=== PATIENT | female | born 1940 | race African-American/Black ===

== ENCOUNTER 2018-04-30 16:57 | Emergency (ER) | payer MEDICARE ==
[~2018-04-30 16:57] MED LIST: ISOVUE-370 76%-LOCM 1 ML ONE
--- NOTE | 2018-04-30 19:52 | CT ---
CT LEFT HAND PERFORMED WITH CONTRAST ENHANCEMENT: HISTORY: Hand swelling with fever. FINDINGS: Exam positioning is suboptimal, as the patient had difficulty due to swelling and moving the hand. There are arthritic changes of the wrist, mainly related to the first carpometacarpal joint space. I do not see any bony destructive change or evidence for fracture. There is soft tissue swelling on both the dorsal and volar sides of the wrist. Changes are more pron ounced along the volar side. There is what appears to be tenosynovitis changes of some of the volar- sided tendons, and a slightly more focal fluid collection seen adjacent to the volar side of the dist al radius. I believe this is probably just part of the tenosynovitis change. There is subcutaneous edema change seen. I do not see a definite defined abscess collection. IMPRESSION: No definite defined abscess. Soft tissue swelling, which seems more pronounced along volar side of t he wrist and hand. There is some fluid density, which is near some of the deeper volar-sided tendons , which would suggest some tenosynovitis. I do not see any signs for osteomyelitis. POS: ABDIFATAH
[2018-04-30] MEDS ORDERED: Fentanyl 100 MCG/2 ML VIAL ONE (20:38)
[2018-04-30] MEDS ORDERED: Clindamycin 150 MG CAP PO SCH (21:00)
== END 2018-04-30 22:57 | disposition short-term general hospital (02) ==
LOC: ERS 16:57
DX: M65.9 Synovitis and tenosynovitis, unspecified (principal); L03.114 Cellulitis of left upper limb; F03.90 Unspecified dementia, unspecified severity, without behavioral disturbance, psychotic disturbance, mood disturbance, and anxiety; E78.5 Hyperlipidemia, unspecified; I10 Essential (primary) hypertension; F41.9 Anxiety disorder, unspecified; Z79.899 Other long term (current) drug therapy
CPT/HCPCS: 29125; 94760; 96374; J3010

== ENCOUNTER 2018-07-02 20:06 | Inpatient (IN) | payer MEDICARE, SELFPAY ==
[2018-07-02 22:34] LABS: Troponin I 0.038 ng/mL (< 0.028)
[2018-07-03] MEDS ORDERED: Ondansetron HCl/PF 4 MG/2 ML Vial IVP PRN ×2 (00:06→07:10)
[2018-07-03] MEDS ORDERED: Ondansetron ODT 4 MG TAB SL PRN (00:06)
[2018-07-03] MEDS ORDERED: Acetaminophen 325 MG TAB PO PRN (00:06)
[2018-07-03] MEDS ORDERED: Sodium Chloride 0.9% 1,000 ML IV SCH (00:06)
[2018-07-03] MEDS: hydrALAZINE 20 MG/ML VIAL SLOW IVP PRN ×2 (00:47→11:54)
[2018-07-03 01:55] VITALS: BMI 23.3
[2018-07-03] MEDS ORDERED: Metoprolol Tartrate 50 MG TAB PO SCH (02:00)
[2018-07-03 02:12] LABS: #Lymphocytes 1.8 thou/uL (1.20-3.40); #Monocytes 0.5 thou/uL (0.11-0.59); #Neutrophils 3.8 thou/uL (1.40-6.50); %Basophils 0.4 % (0.0-1.0); %Eosinophils 0.7 % (0.0-10.0); %Lymphocytes 29.7 % (21.0-51.0); %Monocytes 8.4 % (0.0-10.0); %Neutrophils 60.7 % (42.0-75.0); Hemoglobin 12.7 g/dL (12.0-16.0); Mean Corpuscular HGB CONC 34.1 g/dL (32.0-36.0); Mean Corpuscular Hemoglobin 31.7 pg (27.0-31.0); Mean Corpuscular Volume 92.9 fL (78.0-98.0); Platelet Count 259 thou/uL (130-400); RBC Distribution Width 13.2 % (11.5-14.5); Red Blood Cell (RBC) Count 4.02 mill/uL (4.20-5.40); White Blood Cell (WBC) Count 6.2 thou/uL (4.8-10.8)
[2018-07-03 02:36] LABS: Troponin I 0.047 ng/mL (< 0.028)
[2018-07-03 02:46] LABS: Anion Gap 16 mmol/L (10-20); BUN (Urea Nitrogen) 18 mg/dL (9.8-20.1); Calc. Creatinine Clearance 40 mL/min (70-130); Calcium 10.5 mg/dL (7.8-10.44); Carbon Dioxide 24 mmol/L (23-31); Chloride 103 mmol/L (98-107); Estimated GFR-MDRD 50; Glucose 107 mg/dL (83-110); Potassium 3.2 mmol/L (3.5-5.1); Sodium 140 mmol/L (136-145)
[2018-07-03] MEDS ORDERED: Nitroglycerin 0.4 MG TAB (25 Tab Bottle) PO PRN (07:07)
[2018-07-03] MEDS ORDERED: Milk Of Magnesia 30 ML UDCUP PO PRN (07:10)
[2018-07-03] MEDS ORDERED: Senokot 8.6 MG TAB PO PRN (07:10)
[2018-07-03] MEDS ORDERED: Calcium Carbonate 500 MG ChewTAB PO PRN (07:10)
[2018-07-03] MEDS ORDERED: Ondansetron ODT 4 MG TAB PO PRN (07:10)
[2018-07-03] MEDS ORDERED: Labetalol HCl 100 MG/20 ML VIAL SLOW IVP PRN (07:12)
[2018-07-03] MEDS: Aspirin 325 MG TAB PO SCH (07:48)
[2018-07-03] MEDS: Atorvastatin Calcium 40 MG TAB PO SCH (07:49)
[2018-07-03] MEDS: Sodium Chloride 0.9% 1,000 ML IV SCH (07:49)
[2018-07-03] MEDS: Potassium Chloride 20 MEQ TAB PO SCH ×2 (07:49→17:10)
[2018-07-03 08:32] LABS: Magnesium 1.5 mg/dL (1.6-2.6); Phosphorus 2.7 mg/dL (2.3-4.7); Potassium 3.1 mmol/L (3.5-5.1)
[2018-07-03] MEDS ORDERED: Magnesium 2 GM/NS 0.9% 100 ML 2 GM in Premix Bag 1 BAG IVPB SCH (09:00)
[2018-07-03] MEDS ORDERED: Famotidine 20 MG TAB PO SCH (09:00)
--- NOTE | 2018-07-03 10:03 | ULT ---
VENOUS DUPLEX SONOGRAM RIGHT LOWER EXTREMITY: HISTORY: Right leg pain and edema. FINDINGS: The right common femoral vein and greater saphenous junction were evaluated with the femoral, deep fe moral, popliteal, and posterior tibial veins. Good color and spectral Doppler flow. Reactive lymph node at the right groin. IMPRESSION: No sonographic evidence of deep vein thrombosis right lower extremity. POS: CET
--- NOTE | 2018-07-03 11:13 | ULT ---
CAROTID DOPPLER: Date: 07/03/18 INDICATION: Syncope. The right extracranial carotid system is not evaluated due to bandage material. Technologist checked with patient's nurse and was given directions to proceed with evaluation of the left extracranial carotid system. The left extracranial carotid system was evaluated with color Doppler, spectral analysis, and velocit ies. FINDINGS: There is very dense echogenic plaque in the left bulb and proximal left ICA. There is posterior shado wing indicating prominent calcification of this plaque. This inhibits adequate velocity recordings. The velocity recordings are within normal range; however, the velocity recordings are limited due to the dense calcification. The left vertebral appears to show antegrade flow. IMPRESSION: 1. The right extracranial carotid system is not evaluated. 2. There is prominent echogenic calcified plaque in the left proximal ICA and left bulb. This inhibi ts adequate velocity recordings. Significant stenosis cannot be excluded. 3. Recommend further evaluation with CT angio of neck. This would enable adequate evaluation of both extracranial carotid systems. POS: DEBORAH
--- NOTE | 2018-07-03 14:17 | HP ---
DATE OF ADMISSION: 07/03/2018 PRIMARY CARE PHYSICIAN: Dr. Brandon Nur. CHIEF COMPLAINT: Syncopal episode. HISTORY OF PRESENT ILLNESS: The patient is a 77-year-old female who was brought into the emergency room after a syncopal episode while she was at home. This was witnessed by a family member who was not present in the room at this time. Please note that patient is a poor historian and not much information is available from the patient. She passed out when she was walking out of the bathroom per family. It is unclear how long the patient had passed out for. She denies any chest pain, palpitations, lightheadedness, dizziness, headache, double vision, blurring of vision, facial asymmetry, tongue biting or significant injuries. In the emergency room, initial vital signs showed temperature 98.8, respirations 16, pulse rate of 60, blood pressure 161/64 with O2 saturation 100 % on room air. She underwent an EKG that showed paced rhythm. Family also reported that patient has been having multiple near syncopal episodes over the last 1-2 weeks. For this reason, she was sent to this hospital for admission. Cervical spine and lumbar spine x-ray did not reveal any fractures. Chest x- ray was negative for infiltrate. PAST MEDICAL HISTORY: 1. 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 2. Dementia. 3. Hypertension. 4. Chronic lymphedema. 5. Bilateral lower extremity venous stasis. 6. Chronic kidney disease stage 2. 7. Chronic anemia. PAST SURGICAL HISTORY: 1. Cataract surgery. 2. Hysterectomy. 3. Pacemaker placement. ALLERGIES: Patient is allergic to IBUPROFEN and PENICILLIN. CURRENT HOME MEDICATIONS: Per [employer], Tylenol as needed, Lipitor 40 mg daily , vitamin D3 2000 units daily, folic acid 800 mcg daily, Probiotic daily, melatonin at bedtime, fish oil daily, aspirin 325 mg daily, vitamin B12 1000 mcg daily, Lopressor 50 mg b.i.d. SOCIAL HISTORY: As discussed above, the patient currently lives at home with her family. The surrogate decision maker is the niece, Avani, phone number . She is FULL CODE. FAMILY HISTORY: Negative for strokes. Heart disease runs in her family. REVIEW OF SYSTEMS: Cannot be reliably obtained from the patient due to current cognitive status. PHYSICAL EXAMINATION: VITAL SIGNS: Earlier today showed blood pressure of 243/106. GENERAL: A 77-year-old female in no apparent distress. HEENT: Head atraumatic, normocephalic. Sclerae are anicteric. Moist mucous membranes. No oral lesion. NECK: Supple, no JVD appreciated. No carotid bruit. LUNGS: Essentially clear to auscultation bilaterally. No wheezing, rales or rhonchi. HEART: S1, S2 present. Regular rate and rhythm. Pacemaker noted, 2/6 systolic murmur over the mitral area. ABDOMEN: Soft. Bowel sounds present. EXTREMITIES: Showed right calf tenderness. There is chronic lymphedema. The right lower extremity was slightly more swollen than the left. SKIN: Warm and dry. LYMPH NODES: No palpable lymph nodes in the neck. NEUROLOGIC: Grossly nonfocal. Power was 5/5 in all extremities. Finger-to- nose test was normal. PSYCHIATRY: As discussed above. LYMPH NODES: No palpable lymph nodes in the neck. LABORATORY AND X-RAY FINDINGS: 1. CBC showed WBC 6.2 with hemoglobin 10.9, hematocrit 34.8, platelet 247. 2. Potassium 3.1, magnesium 1.5. 3. BNP 300. Troponins in the indeterminate range at 0.040 4. Creatinine at [facility] was 1.49. 5. EKG and chest x-ray by my review as discussed above. IMPRESSION: 1. Syncopal episode of unclear etiology. Possibilities include dehydration. Her creatinine is elevated. Her baseline creatinine in September was 0.94. Other possibilities include cardiac arrhythmias. Orthostatic hypotension will be ruled out. 2. Acute kidney injury on chronic kidney disease stage 2, probably secondary to dehydration. 3. Hypokalemia. 4. Hypomagnesemia. 5. Elevated troponins, probably secondary to demand ischemia. 6. Hypertensive heart disease. Echocardiogram last year showed ejection fraction 60%-65% with moderate concentric left ventricular hypertrophy. 7. Chronic bilateral lower extremity lymphedema with right lower extremity pain , rule out deep venous thrombosis. 8. Hypertensive urgency. 9. Dementia. PLAN: The patient will be monitored on the telemetry unit. We will rule out orthostatic hypotension. Pacemaker will be interrogated. Gentle IV hydration for acute kidney injury. We will recheck base met in a.m. We will replace magnesium and phosphorus. We will consult walking program. We will resume metoprolol. We will also add low dose of amlodipine due to uncontrolled hypertension. We will barely evaluate for home health care. Fall precautions. Plan of care was discussed with the patient and the family in detail. They stated understanding. MTDD
[2018-07-03] MEDS ORDERED: Amlodipine 5 MG TAB PO SCH (14:30)
[2018-07-03] MEDS: Metoprolol Tartrate 50 MG TAB PO SCH (20:33)
[2018-07-03] MEDS: Melatonin 3 MG TAB PO PRN (20:34)
--- NOTE | 2018-07-03 22:17 | CON-2 ---
DATE OF CONSULTATION: 07/03/2018 CARDIOLOGY CONSULTATION PRIMARY CARE PHYSICIAN: No record. PRIMARY ARTISTIC ASSOCIATE: Annette Zhang M.D. REFERRING PHYSICIAN: Cornel Domingo M.D. REASON FOR CARDIOLOGY CONSULTATION: Possible cardiogenic syncope. HISTORY OF PRESENT ILLNESS: Ms. Stephenson is a very pleasant 77-year-old - [place] female with significant history of hypertension, sick sinus syndrome with status post pacemaker placement in 04/2017 and dementia. At this moment, the patient is alert, but confused to place and situation. The patient's information was obtained from patient's nieces at the bedside and the patient's medical record. The patient's niece reported that the patient has failed at least 5 times in last 1 week, but she never passed out before; however, yesterday when she got up after the patient had a bowel movement, she passed out and fell. At this moment, she lives with her niece's family. The patient' s family member called EMS and the patient was transferred to [facility] for further evaluation and treatment. Per nieces, she was eating and drinking well at home. However, she tends to stay hot room. The patient's pacemaker was interrogated today and showed total 3 episodes of atrial tachycardia, but not significant enough to cause patient's syncope. The patient's carotid Doppler today and CT scan to neck show prominent echogenic classified plug in the left proximal ICA and the left (04:09). Right size is not evaluated because of the IV placement and patient has a VQ scan for right leg pain and edema and showed no significant evidence of DVTs. At the initial Cardiology consult assessment, the patient denied a chest pain or discomfort in her chest, palpitation, fluttering, dizziness, lightheadedness, shortness of breath or any other cardiac complaints. However, the patient is demented. Sometimes patient's answers are questionable. Per nurse, the patient was also found to have orthostatic hypotension; difference is more than 70 point from supine to sitting position. The patient had a pacemaker placement in 04/2017. Patient has echocardiogram done on 07/2017 with EF of 60%-65%, moderate concentric left ventricular hypertrophy, moderate dilated left atrium and normal aortic valve. The patient' s CT brain in June 2018 shows cortical atrophy and a deep white matter ischemic change; however, no acute intracranial abnormality. According to her medical record, she has not had any stress test or cardiac catheterization. PAST MEDICAL HISTORY: 1. Hypertension. 2. Dementia. 3. Mobitz type 2 heart block and status post double chamber pacemaker in April 2017. 4. History of multiple falls within last 1 week. PAST SURGICAL HISTORY: 1. Cataract surgery. 2. Hysterectomy. 3. Status post dual pacemaker placement in November 2016. FAMILY HISTORY: Noncontributory. She cannot answer any questions about patient 's family members. SOCIAL HISTORY: Patient is from [place]. She used to work in the [employer]. At this moment, she lives with her niece's family. Her niece is her power of commercial litigation attorney. The patient denies any ETOH, smoking or illicit drug abuse. ALLERGIES: She is allergic to IBUPROFEN and PENICILLIN. HOME MEDICATIONS: Aspirin 325 mg once a day, metoprolol 50 mg twice a day, vitamin B12 1000 mcg daily, melatonin 3 mg once a night, Tylenol 650 mg q.4. p.r.n., omega 3 once a day, probiotics 3 capsules once a day, vitamin D3 2000 units daily, Lipitor 40 mg once a day, folic acid 800 mcg once a day. REVIEW OF SYSTEMS: Twelve point review of systems as mentioned in the HPI. HEENT: The patient denies any cardiac complaints. The niece reports she has not heard any patient's complained about dizziness, lightheadedness, any cardiac complaints or blood, joint pain or muscle aching, constipation or diarrhea, any GI problems at this moment. PHYSICAL EXAMINATION: VITAL SIGNS: Blood pressure 106/51, pulse is 61, respiratory rate 17, O2 saturation 100% with room air, temperature 98.1. GENERAL: Well-developed and well-nourished without any acute distress. HEAD: Normocephalic, atraumatic. EYES: Extraocular muscle movement intact. ENT: Oral nasal mucosa moist without lesion. She can swallow fluid without difficulty at this moment. She has a good appetite. NECK: No JVD. Neck is supple and normal range of motion. She has IV on the right external jugular vein. LUNGS: Clear to auscultation bilaterally. No wheezing, rales or rhonchi noted. CARDIOVASCULAR: Regular rate rhythm. Normal S1, S2. There are no S3, S4, no significant murmur, hives, thrill, bruits noted. EXTREMITIES: There are 2+ pulses in the bilateral dorsal pedis, posterior tibial, and popliteal has a pulse on the left side is present without bruit or thrill. Unable check the right side due to the IV placement. There is no edema in the bilateral lower extremities. ABDOMEN: Soft and nontender or mass to palpate, nondistended. Bowel sounds are present. MUSCULOSKELETAL: Patient able to move all extremities. SKIN: Warm, dry. No bruises or lesions noted. NEUROLOGIC: Patient is alert to self; however, she is disoriented to time, place, and situation. PSYCHIATRIC: The patient's mood and affect are normal. LABORATORY DATA: WBC 6.2, hemoglobin 12.7, hematocrit 37.4, platelet 259. Sodium 140, potassium 3.2, chloride 103, carbon dioxide 24, BUN 18, creatinine 1.25 and calcium 10.5 and troponin 0.038, 0.047. BNP is 300. The patient's 12-lead EKG at ER showed AV pacing and heart rate of 60s. ASSESSMENT AND PLAN: 1. History of syncopal episodes, possible due to the orthostatic hypotension and/or dehydration. The vital sign record during this admission shows some time patient's blood pressure difference more than 70s. The patient is receiving normal saline 50 mL per an hour at this moment, we would like to continue to monitor the patient's blood pressure and vital signs continuously. 2. Hypertension. The patient's blood pressure is stable with amlodipine 2.5 mg once a day, metoprolol 50 mg twice a day. We would like to continue to monitor. 3. Status post pacemaker placement in April 2017. The patient's pacemaker interrogation today was done with no significant abnormality at this moment. 4. Acute on chronic kidney disease. Patient's creatinine level is stable at this moment. 5. Chronic lymphedema, resolved at this moment, stable with SCDs. We would like to continue to monitor. 6. Dementia. Patient's condition, no change from previous admission. 7. Hypokalemia. Patient has been on the potassium supplement by primary care doctor. 8. Hyperlipidemia. She is on atorvastatin 40 mg once a day. Thank you very much for Cardiology service to participate in care of this patient. We will follow along with the patient care team and make further recommendation as appropriate. TOÑO
--- NOTE | 2018-07-04 00:58 | CON ---
DATE OF CONSULTATION: 07/02/2018 DATE OF ADMISSION: 07/02/2018 INDICATION FOR CONSULTATION: A 77-year-old female with syncopal episodes. Please refer to the notes already dictated by my nurse practitioner, Jenn Parada. HISTORY OF PRESENT ILLNESS: This is a very unfortunate 77-year-old female with significant dementia who still lives at home with her family. She has undergone a pacemaker insertion in the past due to sinus-node dysfunction. At this time, she has a pacemaker insertion, which still shows occasional at rial pacing with ventricular sensing occasionally, she has atrial sensing and ventricular pacing. Reagan syed does have a long first-degree AV heart block. Of note, the patient lives at home with family, appa rently she had been sitting down, had been complaining of being hot. She got up to go to the bathroo and then passed out, but she was doing fine as long as she was sitting and then when she was able t o get up, she finally went to the bathroom, she use the restroom and then on the way back apparently she again after getting up from the toilet and again had another syncopal episode. Since being in [facility] here, it appears that she does have orthostatic hypotension. Her cardiac enzymes were ind eterminate, but which could be due to demand ischemia associated with the syncopal episode. There is no indication that she has suffered a myocardial infarction. The troponin I still indeterminate 0.0 38 and 0.047. She denied any chest pain or significant shortness of breath, did notice her potassium also was on the low side at 3.1. Her BNP was 300. Creatinine was 1.25 with a BUN of 18. She denie d any other symptoms and otherwise have been no significant abnormalities noted. She does not appear to have any infection. Her hemoglobin is stable. White blood cell count was stable, platelet count was also stable. She has had a carotid ultrasound performed, which also did not show any significan t stenosis in the past that she has had no evidence of DVT or PE. On the carotid ultrasound, there w as some concern that are significant stenosis, could not be ruled out due to calcifications, but ther e have been no significant stenosis noted in the past. At this time, she remains very confused. She is unable to give a history and is actually hallucinating and seeing things on the floor that do not exist, otherwise denies any pain or shortness of breath at this time. She is refusing to eat at thi s time. Her dinner, still plate is there, but she has stated that she has already eaten, but obvious ly the food is not touched. She did have an interrogation of the pacemaker, which showed that she godienz s ventricular pacing about 14% of the time. She has atrial pacing and ventricular sensing about 85% of the time. It was noted that she had no high ventricular rate episodes on yesterday morning around 11:00. She did have some fast atrial rates, which could have been either atrial tachycardia. There has been some concern on EKGs that she may have some flutter, but I do not see any true indication o f flutter nor do I see any evidence of atrial fibrillation. She has had some irregular heart rate. She does have a first-degree AV heart block, which has been noted in the past as she does have sinus node dysfunction, but otherwise the pacemaker function appears to be absolutely normal and there have been no significant arrhythmias otherwise that would account for syncopal episodes. The one atrial heart rate episode most likely was atrial tachycardia. PAST MEDICAL HISTORY, SOCIAL HISTORY, FAMILY HISTORY, REVIEW OF SYSTEMS, AND MEDICATIONS: Please ref er to the notes already dictated by the nurse practitioner. IMPRESSION: 1. Syncope, which most likely was due to dehydration. Hopefully, she will improve after she has bee n given more volume. She has not been eating and drinking appropriately, but she appears to have ort hostatic hypotension, hopefully this will improve after fluid replacements. 2. History of pacemaker insertion, this was functioning normally. 3. Significant dementia, this will be dealt with by the primary care service. 4. Hypertension. At this time, we will continue her medications may need to increase her beta block ers to see if this will improve some and may also help the orthostatic hypotension. 5. History of chronic lymphedema. She does have significant edema today, but does have some mild ed rafael. 6. Slight elevation of the cardiac enzymes, which are indeterminate, which most likely are due to de wendie ischemia. We would be more than happy to continue to follow the patient with you at this time, but overall appears that she has orthostatic hypotension. We will need to evaluate this further. We will continue to follow with orthostatic blood pressure checks.
--- NOTE | 2018-07-04 08:16 | PDOC.CTH ---
<TalJenn - Last Filed: 07/04/18 08:11> Cardiology Progress Note - Subjective The pt seen and examined. No overnight events. No cardiac complaints. She is alerted but confused about place and situation. Per RN, the pt could not stand because of severe dizziness. - Objective Vital Signs Temp Pulse Resp BP Pulse Ox 07/04/18 05:01 97.3 F L 72 12 164/58 H 100 Weight 150 lb 1.6 oz 07/03/18 07/04/18 07/05/18 06:59 06:59 06:59 Intake Total 823 2049 Output Total 800 515 Balance 23 1534 - Physical Examination Neck: carotid US brisk Lungs: CTA Heart: RRR Abdomen: soft Extremities: other: (No edema; SCDs) - Telemetry Telemetry Rhythm: A paced - Labs Result Diagrams: 07/03/18 01:58 07/03/18 08:07 Troponin/CKMB Troponin I 0.047 ng/mL (< 0.028) H 07/03/18 01:58 - Assessment/Plan 1. S/p Syncopal episode 2/2 orthostatic hypotension - Unable to obtain orthstatic VS last night due to the pt's confusion. Orthostatic hypotension this AM was Spine: SBP 164, sittin, standing: Error (60s by manual). She complained of dizziness when she was standing, per RN report. Fluid intake yesterday was > 2000. 2. HTN - stable with current medication 3. 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 Dementia - 5. JEAN CLAUDE - Cont. to monitor 6. Hyperlipidemia - On Statin MAR reviewed Review of Systems - Review of Systems Constitutional: reports: no symptoms reported EENTM: reports: no symptoms reported Respiratory: reports: no symptoms reported Cardiac (ROS): reports: no symptoms reported ABD/GI: reports: no symptoms reported : reports: no symptoms reported Musculoskeletal: reports: back pain <Rojelio Zhang - Last Filed: 07/04/18 17:46> Cardiology Progress Note - Objective Vital Signs Temp Pulse Resp BP BP BP Pulse Ox 07/04/18 16:00 97.4 F L 63 18 144/74 H 94 L 07/04/18 11:19 97.3 F L 63 20 101/59 L 98 07/04/18 08:50 61 07/04/18 07:55 97.4 F L 61 16 07/04/18 07:37 97.4 F L 61 16 118/70 168/82 H 100 Weight 150 lb 1.6 oz 07/03/18 07/04/18 07/05/18 06:59 06:59 06:59 Intake Total 823 2049 411 Output Total 800 515 Balance 23 1534 411 - Labs Result Diagrams: 07/03/18 01:58 07/04/18 15:20 Troponin/CKMB Troponin I 0.047 ng/mL (< 0.028) H 07/03/18 01:58 - Assessment/Plan Pt. seen and eval. by me. I agree with the A/P by the DRILL OPERATOR.If the orthostatic BP does not improve after volume replacement then I suggest we try Midodrine and support hose.
[2018-07-04] MEDS: Amlodipine 5 MG TAB PO SCH (08:50)
[2018-07-04] MEDS: Aspirin 325 MG TAB PO SCH (08:50)
[2018-07-04] MEDS: Metoprolol Tartrate 50 MG TAB PO SCH ×2 (08:50→20:54)
[2018-07-04] MEDS: Atorvastatin Calcium 40 MG TAB PO SCH (08:51)
[2018-07-04] MEDS: Acetaminophen 325 MG TAB PO PRN ×2 (08:51→20:54)
[2018-07-04] MEDS: Famotidine 20 MG TAB PO SCH (08:51)
[2018-07-04] MEDS: Sodium Chloride 0.9% 1,000 ML IV SCH ×2 (11:01→11:54)
--- NOTE | 2018-07-04 12:48 | PDOC.PN ---
- Subjective Encounter Start Date: 07/04/18 Encounter Start Time: 12:47 Patient was seen and examined by me. Not in acute distress. Denies any dizziness at the time of exams. Per nurse patient had positive orthostatics and was dizzy in the morning. - Objective Resuscitation Status: Resuscitation Status FULL:Full Resuscitation MAR Reviewed: Yes Vital Signs & Weight: Vital Signs (12 hours) Temp Pulse Resp BP BP BP Pulse Ox 07/04/18 11:19 97.3 F L 63 20 101/59 L 98 07/04/18 08:50 61 07/04/18 07:55 97.4 F L 61 16 07/04/18 07:37 97.4 F L 61 16 118/70 168/82 H 100 07/04/18 05:01 97.3 F L 72 12 164/58 H 100 Weight Weight 150 lb 1.6 oz I&O: 07/03/18 07/04/18 07/05/18 06:59 06:59 06:59 Intake Total 823 2049 411 Output Total 800 515 Balance 23 1534 411 Result Diagrams: 07/03/18 01:58 07/03/18 08:07 Phys Exam - Physical Examination Constitutional: NAD HEENT: PERRLA dry skin and MMs Neck: no JVD Respiratory: no wheezing, no rales Cardiovascular: RRR, no significant murmur, no rub Gastrointestinal: soft, non-tender, no distention, positive bowel sounds Musculoskeletal: pulses present Neurological: non-focal, normal sensation, moves all 4 limbs Psychiatric: normal affect Deviation from normal: AOX2 Skin: cap refill <2 seconds Deviation from normal: dry skin Dx/Plan (1) Orthostatic hypotension Code(s): I95.1 - ORTHOSTATIC HYPOTENSION Status: Acute (2) Acute renal failure Status: Acute (3) Electrolyte abnormality Code(s): E87.8 - OTH DISORDERS OF ELECTROLYTE AND FLUID BALANCE, NEC Status: Acute (4) Hypertensive urgency Code(s): I16.0 - HYPERTENSIVE URGENCY Status: Acute (5) Dementia Code(s): F03.90 - UNSPECIFIED DEMENTIA WITHOUT BEHAVIORAL DISTURBANCE Status: Chronic Qualifiers: Dementia type: unspecified type - Plan * . Review of Systems - Review of Systems Constitutional: negative: fever, chills, sweats, weakness, malaise, other Eyes: negative: Pain, Vision Change, Conjunctivae Inflammation, Eyelid Inflammation, Redness, Other ENT: negative: Ear Pain, Ear Discharge, Nose Pain, Nose Discharge, Nose Congestion, Mouth Pain, Mouth Swelling, Throat Pain, Throat Swelling, Other Respiratory: negative: Cough, Dry, Shortness of Breath, Hemoptysis, SOB with Excertion, Pleuritic Pain, Sputum, Wheezing Cardiovascular: negative: chest pain, palpitations, orthopnea, paroxysmal nocturnal dyspnea, edema, light headedness, other Gastrointestinal: negative: Nausea, Vomiting, Abdominal Pain, Diarrhea, Constipation, Melena, Hematochezia, Other Genitourinary: negative: Dysuria, Frequency, Incontinence, Hematuria, Retention , Other Musculoskeletal: negative: Neck Pain, Shoulder Pain, Arm Pain, Back Pain, Hand Pain, Leg Pain, Foot Pain, Other Skin: negative: Rash, Lesions, Fredy, Bruising, Other Neurological: negative: Weakness, Numbness, Incoordination, Change in Speech, Confusion, Seizures, Other - Medications/Allergies Allergies/Adverse Reactions: Allergies Allergy/AdvReac Type Severity Reaction Status Date / Time ibuprofen Allergy Verified 07/03/18 01:41 NSAIDS (Non-Steroidal Allergy Verified 07/03/18 01:41 Anti-Inflamma Penicillins Allergy Verified 07/03/18 01:41 Medications: Current Medications Acetaminophen (Tylenol) 650 mg PO Q4H PRN PRN Reason: Headache/Fever or Pain Last Admin: 07/04/18 08:51 Dose: 650 mg Amlodipine Besylate (Norvasc) 2.5 mg PO DAILY [facility] Last Admin: 07/04/18 08:50 Dose: 2.5 mg Aspirin (Aspirin) 325 mg PO DAILY [facility] Last Admin: 07/04/18 08:50 Dose: 325 mg Atorvastatin Calcium (Lipitor) 40 mg PO DAILY [facility] Last Admin: 07/04/18 08:51 Dose: 40 mg Calcium Carbonate (Tums) 1,000 mg PO Q4H PRN PRN Reason: Heartburn or Indigestion Famotidine (Pepcid) 20 mg PO 0900 [facility] Last Admin: 07/04/18 08:51 Dose: 20 mg Hydralazine HCl (Apresoline) 10 mg SLOW IVP Q4H PRN PRN Reason: FOR SBP > 180 Last Admin: 07/03/18 11:54 Dose: 10 mg Sodium Chloride (Normal Saline 0.9%) 1,000 mls @ 80 mls/hr IV .[id number] [facility] Last Admin: 07/04/18 11:54 Dose: Not Given Labetalol HCl (Normodyne) 10 mg SLOW IVP Q4H PRN PRN Reason: Systolic BP > 180 Magnesium Hydroxide (Milk Of Magnesium) 30 ml PO DAILYPRN PRN PRN Reason: Constipation Melatonin (Melatonin) 3 mg PO HS PRN PRN Reason: Insomnia Last Admin: 07/03/18 20:34 Dose: 3 mg Metoprolol Tartrate (Lopressor) 50 mg PO BID [facility] Last Admin: 07/04/18 08:50 Dose: 50 mg Nitroglycerin (Nitrostat) 0.4 mg PO Q5MIN PRN PRN Reason: Chest Pain Ondansetron HCl (Zofran Odt) 4 mg PO Q6H PRN PRN Reason: Nausea/Vomiting Ondansetron HCl (Zofran) 4 mg IVP Q6H PRN PRN Reason: Nausea/Vomiting Senna (Senokot) 2 tab PO HSPRN PRN PRN Reason: Constipation
--- NOTE | 2018-07-04 14:08 | RAD ---
THERE VIEWS RIGHT SHOULDER: Comparison: None. History: Right shoulder pain after fall. FINDINGS: Three views of the right shoulder shows no evidence of acute fracture or dislocation. There is severe degenerative changes in the glenohumeral joint. The visualized right thorax is unremarkable. IMPRESSION: Severe degenerative changes of the right shoulder without acute osseous abnormality. POS: MISTY
[2018-07-04 15:57] LABS: Anion Gap 12 mmol/L (10-20); BUN (Urea Nitrogen) 20 mg/dL (9.8-20.1); Calc. Creatinine Clearance 46 mL/min (70-130); Calcium 9.8 mg/dL (7.8-10.44); Carbon Dioxide 28 mmol/L (23-31); Chloride 104 mmol/L (98-107); Estimated GFR-MDRD 58; Glucose 100 mg/dL (83-110); Potassium 3.6 mmol/L (3.5-5.1); Sodium 140 mmol/L (136-145)
[2018-07-04] MEDS: Melatonin 3 MG TAB PO PRN (20:54)
[2018-07-05] MEDS: Sodium Chloride 0.9% 1,000 ML IV SCH ×4 (01:21→23:08)
[2018-07-05] MEDS: Aspirin 325 MG TAB PO SCH (09:30)
[2018-07-05] MEDS: Atorvastatin Calcium 40 MG TAB PO SCH (09:30)
[2018-07-05] MEDS: Metoprolol Tartrate 50 MG TAB PO SCH ×2 (09:31→20:44)
[2018-07-05] MEDS: Famotidine 20 MG TAB PO SCH (09:31)
[2018-07-05] MEDS: Amlodipine 5 MG TAB PO SCH (09:31)
[2018-07-05] MEDS: hydrALAZINE 20 MG/ML VIAL SLOW IVP PRN (12:57)
--- NOTE | 2018-07-05 16:03 | EKG ---
Test Reason : Blood Pressure : / mmHG Vent. Rate : 061 BPM Atrial Rate : 061 BPM P-R Int : 000 ms QRS Dur : 200 ms QT Int : 500 ms P-R-T Axes : 000 -74 098 degrees QTc Int : 503 ms AV dual-paced rhythm Abnormal ECG Confirmed by DONY EVANS MD ([id number]), department editor SANDOR GRAVES ([id number]) on 07/05/2018 4:02:49 PM Referred By: Confirmed By:DONY EVANS MD
--- NOTE | 2018-07-05 16:14 | PDOC.CTH ---
<Jenn Parada - Last Filed: 07/05/18 16:09> Cardiology Progress Note - Subjective The pt seen and examined. No cardiac complaints. Difference BP from spine to sitting was > 30. Per nieces, the pt has lost more than 11 lbs less than 2 wks. - Objective Vital Signs Temp Pulse Resp BP BP BP BP 07/05/18 15:54 98.5 F 60 18 120/60 07/05/18 12:57 63 212/83 H 07/05/18 12:20 98.2 F 66 18 212/83 H 07/05/18 09:31 73 145/76 H 07/05/18 08:15 97.5 F L 73 18 110/55 L 81/53 L 07/05/18 06:15 62 195/91 H BP Pulse Ox 07/05/18 15:54 100 07/05/18 12:57 07/05/18 12:20 100 07/05/18 09:31 07/05/18 08:15 123/59 L 100 07/05/18 06:15 Weight 150 lb 1.6 oz 07/04/18 07/05/18 07/06/18 06:59 06:59 06:59 Intake Total 2049 411 Output Total 515 Balance 1534 411 - Physical Examination General/Neuro: other: (alerted; but confused. ) Neck: no JVD present Lungs: CTA Heart: RRR Abdomen: soft Extremities: other: (No edema) - Telemetry Telemetry Rhythm: AV paced - Labs Result Diagrams: 07/03/18 01:58 07/04/18 15:20 Troponin/CKMB Troponin I 0.047 ng/mL (< 0.028) H 07/03/18 01:58 - Assessment/Plan 1. S/p Syncopal episode 2/2 orthostatic hypotension - Difference BP from spine to sitting was > 30. Per nieces, the pt has lost more than 11 lbs less than 2 wks. Will increase NS IV from 50ml to 100ml/h. If cont. siginificant Orthstatic hypotension, we try Midodrine and support hose. 2. HTN - stable with current medication 3. 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 Dementia - stable; family at bedside 5. JEAN CLAUDE - Cont. to monitor 6. Hyperlipidemia - On Statin MAR reviewed * Echo in 04/2017 showed EF60-65%, mod LVH, mod dilated LA. Review of Systems - Review of Systems Constitutional: reports: no symptoms reported EENTM: reports: no symptoms reported Respiratory: reports: no symptoms reported Cardiac (ROS): reports: no symptoms reported ABD/GI: reports: no symptoms reported : reports: no symptoms reported Musculoskeletal: reports: no symptoms reported Skin: reports: no symptoms reported Neurological: reports: no symptoms reported <Rojelio Zhang - Last Filed: 07/05/18 23:26> Cardiology Progress Note - Objective Vital Signs Temp Pulse Resp BP BP Pulse Ox 07/05/18 15:54 98.5 F 60 18 120/60 100 07/05/18 12:57 63 212/83 H 07/05/18 12:20 98.2 F 66 18 212/83 H 100 Weight 150 lb 1.6 oz 07/04/18 07/05/18 07/06/18 06:59 06:59 06:59 Intake Total 2049 411 992 Output Total 515 Balance 1534 411 992 - Labs Result Diagrams: 07/03/18 01:58 07/04/18 15:20 Troponin/CKMB Troponin I 0.047 ng/mL (< 0.028) H 07/03/18 01:58 - Assessment/Plan Pt. seen and eval. by me. I agree with the A/P by the CLINICAL MEDICAL ASSISTANT. We have discussed the plan.
[2018-07-05] MEDS: Acetaminophen 325 MG TAB PO PRN (20:49)
--- NOTE | 2018-07-05 21:16 | PDOC.PN ---
- Subjective Encounter Start Date: 07/05/18 Encounter Start Time: 17:40 Patient seen and examined. Demented and confused, but alert to self and NAD. - Objective Resuscitation Status: Resuscitation Status FULL:Full Resuscitation MAR Reviewed: Yes Vital Signs & Weight: Vital Signs (12 hours) Temp Pulse Resp BP BP Pulse Ox 07/05/18 15:54 98.5 F 60 18 120/60 100 07/05/18 12:57 63 212/83 H 07/05/18 12:20 98.2 F 66 18 212/83 H 100 07/05/18 09:31 73 145/76 H Weight Weight 150 lb 1.6 oz I&O: 07/04/18 07/05/18 07/06/18 06:59 06:59 06:59 Intake Total 2049 411 992 Output Total 515 Balance 1534 411 992 Result Diagrams: 07/03/18 01:58 07/04/18 15:20 Phys Exam - Physical Examination Constitutional: NAD HEENT: PERRLA, moist MMs Neck: no JVD, supple, full ROM Respiratory: no wheezing, no rales, no rhonchi, clear to auscultation bilateral Cardiovascular: no significant murmur Gastrointestinal: soft, non-tender, no distention, positive bowel sounds Musculoskeletal: no edema, pulses present Neurological: non-focal, moves all 4 limbs Demented Psychiatric: normal affect Deviation from normal: A&O x1 Dx/Plan (1) Orthostatic hypotension Code(s): I95.1 - ORTHOSTATIC HYPOTENSION Status: Acute Comment: Per cardio if patient continue to be hypotensive then will give midodrine. We will follow cardio's recs. (2) Acute renal failure Status: Acute Comment: improving (3) Electrolyte abnormality Code(s): E87.8 - OTH DISORDERS OF ELECTROLYTE AND FLUID BALANCE, NEC Status: Resolved (4) Hypertensive urgency Code(s): I16.0 - HYPERTENSIVE URGENCY Status: Acute (5) Dementia Code(s): F03.90 - UNSPECIFIED DEMENTIA WITHOUT BEHAVIORAL DISTURBANCE Status: Chronic Qualifiers: Dementia type: unspecified type Comment: Will need placement. - Plan * . see the above Review of Systems - Review of Systems Constitutional: negative: fever, chills, sweats, weakness, malaise, other Eyes: negative: Pain, Vision Change, Conjunctivae Inflammation, Eyelid Inflammation, Redness, Other ENT: negative: Ear Pain, Ear Discharge, Nose Pain, Nose Discharge, Nose Congestion, Mouth Pain, Mouth Swelling, Throat Pain, Throat Swelling, Other Respiratory: negative: Cough, Dry, Shortness of Breath, Hemoptysis, SOB with Excertion, Pleuritic Pain, Sputum, Wheezing Cardiovascular: negative: chest pain, palpitations, orthopnea, paroxysmal nocturnal dyspnea, edema, light headedness, other Gastrointestinal: negative: Nausea, Vomiting, Abdominal Pain, Diarrhea, Constipation, Melena, Hematochezia, Other Genitourinary: negative: Dysuria, Frequency, Incontinence, Hematuria, Retention , Other Musculoskeletal: negative: Neck Pain, Shoulder Pain, Arm Pain, Back Pain, Hand Pain, Leg Pain, Foot Pain, Other Skin: negative: Rash, Lesions, Fredy, Bruising, Other Neurological: Confusion. negative: Weakness, Numbness, Incoordination, Change in Speech, Seizures, Other - Medications/Allergies Allergies/Adverse Reactions: Allergies Allergy/AdvReac Type Severity Reaction Status Date / Time ibuprofen Allergy Verified 07/03/18 01:41 NSAIDS (Non-Steroidal Allergy Verified 07/03/18 01:41 Anti-Inflamma Penicillins Allergy Verified 07/03/18 01:41 Medications: Current Medications Acetaminophen (Tylenol) 650 mg PO Q4H PRN PRN Reason: Headache/Fever or Pain Last Admin: 07/05/18 20:49 Dose: 650 mg Amlodipine Besylate (Norvasc) 2.5 mg PO DAILY [facility] Last Admin: 07/05/18 09:31 Dose: 2.5 mg Aspirin (Aspirin) 325 mg PO DAILY [facility] Last Admin: 07/05/18 09:30 Dose: 325 mg Atorvastatin Calcium (Lipitor) 40 mg PO DAILY [facility] Last Admin: 07/05/18 09:30 Dose: 40 mg Calcium Carbonate (Tums) 1,000 mg PO Q4H PRN PRN Reason: Heartburn or Indigestion Famotidine (Pepcid) 20 mg PO 0900 [facility] Last Admin: 07/05/18 09:31 Dose: 20 mg Hydralazine HCl (Apresoline) 10 mg SLOW IVP Q4H PRN PRN Reason: FOR SBP > 180 Last Admin: 07/05/18 12:57 Dose: 10 mg Sodium Chloride (Normal Saline 0.9%) 1,000 mls @ 100 mls/hr IV .Q10H [facility] Last Admin: 07/05/18 16:42 Dose: Not Given Labetalol HCl (Normodyne) 10 mg SLOW IVP Q4H PRN PRN Reason: Systolic BP > 180 Last Admin: 07/05/18 06:15 Dose: 10 mg Magnesium Hydroxide (Milk Of Magnesium) 30 ml PO DAILYPRN PRN PRN Reason: Constipation Melatonin (Melatonin) 3 mg PO HS PRN PRN Reason: Insomnia Last Admin: 07/04/18 20:54 Dose: 3 mg Metoprolol Tartrate (Lopressor) 50 mg PO BID [facility] Last Admin: 07/05/18 20:44 Dose: 50 mg Nitroglycerin (Nitrostat) 0.4 mg PO Q5MIN PRN PRN Reason: Chest Pain Ondansetron HCl (Zofran Odt) 4 mg PO Q6H PRN PRN Reason: Nausea/Vomiting Ondansetron HCl (Zofran) 4 mg IVP Q6H PRN PRN Reason: Nausea/Vomiting Senna (Senokot) 2 tab PO HSPRN PRN PRN Reason: Constipation
[2018-07-05] MEDS ORDERED: tiZANidine HCl 4 MG TAB PO PRN (22:36)
[2018-07-06] MEDS: Atorvastatin Calcium 40 MG TAB PO SCH (08:33)
[2018-07-06] MEDS: Aspirin 325 MG TAB PO SCH (08:33)
[2018-07-06] MEDS: Sodium Chloride 0.9% 1,000 ML IV SCH ×2 (08:33→16:51)
[2018-07-06] MEDS: Amlodipine 5 MG TAB PO SCH (08:33)
[2018-07-06] MEDS: Metoprolol Tartrate 50 MG TAB PO SCH ×2 (08:33→20:55)
[2018-07-06] MEDS: Famotidine 20 MG TAB PO SCH (08:34)
--- NOTE | 2018-07-06 18:26 | PDOC.CTH ---
<Jenn Parada - Last Filed: 07/06/18 18:26> Cardiology Progress Note - Subjective The pt seen and examined. No overnight events. No cardiac complaints. Now she has a sitter for fall prevention. - Objective Vital Signs Temp Pulse Resp BP BP BP BP 07/06/18 15:00 97.9 F 68 18 204/90 H 156/89 H 201/95 H 07/06/18 11:00 97.9 F 60 18 120/59 L 07/06/18 08:33 72 07/06/18 07:46 97.3 F L 72 18 07/06/18 07:40 72 18 182/79 H Pulse Ox 07/06/18 15:00 100 07/06/18 11:00 100 07/06/18 08:33 07/06/18 07:46 100 07/06/18 07:40 100 Weight 152 lb 9.6 oz 07/05/18 07/06/18 07/07/18 06:59 06:59 06:59 Intake Total 411 2502 1757 Output Total 50 400 Balance 411 2452 1357 - Physical Examination General/Neuro: other: (alerted to self only) Lungs: CTA Heart: RRR Abdomen: soft Extremities: other: (No edema) - Telemetry Telemetry Rhythm: SR - Labs Result Diagrams: 07/03/18 01:58 07/04/18 15:20 Troponin/CKMB Troponin I 0.047 ng/mL (< 0.028) H 07/03/18 01:58 - Assessment/Plan 1. S/p Syncopal episode 2/2 orthostatic hypotension - Difference BP from spine and sitting to standing was > 50. On NS IV from 50ml to 100ml/h and TEDs. The pt may need neurology service consult. 2. HTN - stable with current medication 3. 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 Dementia - sitter at bedside 5. JEAN CLAUDE - recheck BMP tomorrow AM 6. Hyperlipidemia - On Statin MAR reviewed * Echo in 04/2017 showed EF60-65%, mod LVH, mod dilated LA. Review of Systems - Review of Systems Constitutional: reports: no symptoms reported EENTM: reports: no symptoms reported Respiratory: reports: no symptoms reported Cardiac (ROS): reports: no symptoms reported ABD/GI: reports: no symptoms reported : reports: no symptoms reported <Rojelio Zhang - Last Filed: 07/06/18 19:44> Cardiology Progress Note - Objective Vital Signs Temp Pulse Resp BP BP BP BP 07/06/18 15:00 97.9 F 68 18 204/90 H 156/89 H 201/95 H 07/06/18 11:00 97.9 F 60 18 120/59 L 07/06/18 08:33 72 07/06/18 07:46 97.3 F L 72 18 Pulse Ox 07/06/18 15:00 100 07/06/18 11:00 100 07/06/18 08:33 07/06/18 07:46 100 Weight 152 lb 9.6 oz 07/05/18 07/06/18 07/07/18 06:59 06:59 06:59 Intake Total 411 2502 1757 Output Total 50 400 Balance 411 2452 1357 - Labs Result Diagrams: 07/03/18 01:58 07/04/18 15:20 Troponin/CKMB Troponin I 0.047 ng/mL (< 0.028) H 07/03/18 01:58 - Assessment/Plan Pt. seen and eval. I agree with the A/P by the DENTAL CLAIMS PROCESSOR. Her overall status has changed very little. She continues to have significant drops in the BP with the orthostatic hypotension. This is difficult to treat especially with her degree of HTN. I have discussed the case with the hospital service. Neurology input may be helpful as this is an autonomic issue.
--- NOTE | 2018-07-06 18:41 | PDOC.PN ---
- Subjective Encounter Start Date: 07/06/18 Encounter Start Time: 18:39 patient sitting in bed with family in room. NAD - Objective Resuscitation Status: Resuscitation Status FULL:Full Resuscitation MAR Reviewed: Yes Vital Signs & Weight: Vital Signs (12 hours) Temp Pulse Resp BP BP BP BP 07/06/18 15:00 97.9 F 68 18 204/90 H 156/89 H 201/95 H 07/06/18 11:00 97.9 F 60 18 120/59 L 07/06/18 08:33 72 07/06/18 07:46 97.3 F L 72 18 07/06/18 07:40 72 18 182/79 H Pulse Ox 07/06/18 15:00 100 07/06/18 11:00 100 07/06/18 08:33 07/06/18 07:46 100 07/06/18 07:40 100 Weight Weight 152 lb 9.6 oz I&O: 07/05/18 07/06/18 07/07/18 06:59 06:59 06:59 Intake Total 411 2502 1757 Output Total 50 400 Balance 411 2452 1357 Result Diagrams: 07/03/18 01:58 07/04/18 15:20 Phys Exam - Physical Examination Constitutional: NAD HEENT: PERRLA, moist MMs Neck: no JVD, supple, full ROM Respiratory: no wheezing, no rales, no rhonchi, clear to auscultation bilateral Cardiovascular: RRR, no significant murmur, no rub Gastrointestinal: soft, non-tender, no distention Musculoskeletal: no edema, pulses present Neurological: non-focal, normal sensation, moves all 4 limbs Deviation from normal: demented Deviation from normal: dry skin Dx/Plan (1) Orthostatic hypotension Code(s): I95.1 - ORTHOSTATIC HYPOTENSION Status: Acute Comment: Per cardio midodrin and nitro paste when patient is lying down. Will try [employer] stockings. Will get neurology input. Will monitor and re-evaluate in the AM (2) Acute renal failure Status: Acute Comment: improving (3) Electrolyte abnormality Code(s): E87.8 - OTH DISORDERS OF ELECTROLYTE AND FLUID BALANCE, NEC Status: Resolved (4) Hypertensive urgency Code(s): I16.0 - HYPERTENSIVE URGENCY Status: Acute (5) Dementia Code(s): F03.90 - UNSPECIFIED DEMENTIA WITHOUT BEHAVIORAL DISTURBANCE Status: Chronic Qualifiers: Dementia type: unspecified type Comment: increased metoprolol 75 BID per cardio's recs. - Plan * . Review of Systems - Review of Systems Constitutional: negative: fever, chills, sweats, weakness, malaise, other Eyes: negative: Pain, Vision Change, Conjunctivae Inflammation, Eyelid Inflammation, Redness, Other ENT: negative: Ear Pain, Ear Discharge, Nose Pain, Nose Discharge, Nose Congestion, Mouth Pain, Mouth Swelling, Throat Pain, Throat Swelling, Other Respiratory: negative: Cough, Dry, Shortness of Breath, Hemoptysis, SOB with Excertion, Pleuritic Pain, Sputum, Wheezing Cardiovascular: negative: chest pain, palpitations, orthopnea, paroxysmal nocturnal dyspnea, edema, light headedness, other Gastrointestinal: negative: Nausea, Vomiting, Abdominal Pain, Diarrhea, Constipation, Melena, Hematochezia, Other Genitourinary: negative: Dysuria, Frequency, Incontinence, Hematuria, Retention , Other Musculoskeletal: negative: Neck Pain, Shoulder Pain, Arm Pain, Back Pain, Hand Pain, Leg Pain, Foot Pain, Other Skin: negative: Rash, Lesions, Fredy, Bruising, Other Neurological: negative: Weakness, Numbness, Incoordination, Change in Speech, Confusion, Seizures, Other - Medications/Allergies Allergies/Adverse Reactions: Allergies Allergy/AdvReac Type Severity Reaction Status Date / Time ibuprofen Allergy Verified 07/03/18 01:41 NSAIDS (Non-Steroidal Allergy Verified 07/03/18 01:41 Anti-Inflamma Penicillins Allergy Verified 07/03/18 01:41 Medications: Current Medications Acetaminophen (Tylenol) 650 mg PO Q4H PRN PRN Reason: Headache/Fever or Pain Last Admin: 07/05/18 20:49 Dose: 650 mg Amlodipine Besylate (Norvasc) 2.5 mg PO DAILY [facility] Last Admin: 07/06/18 08:33 Dose: 2.5 mg Aspirin (Aspirin) 325 mg PO DAILY [facility] Last Admin: 07/06/18 08:33 Dose: 325 mg Atorvastatin Calcium (Lipitor) 40 mg PO DAILY [facility] Last Admin: 07/06/18 08:33 Dose: 40 mg Calcium Carbonate (Tums) 1,000 mg PO Q4H PRN PRN Reason: Heartburn or Indigestion Famotidine (Pepcid) 20 mg PO 0900 [facility] Last Admin: 07/06/18 08:34 Dose: 20 mg Hydralazine HCl (Apresoline) 10 mg SLOW IVP Q4H PRN PRN Reason: FOR SBP > 180 Last Admin: 07/05/18 12:57 Dose: 10 mg Sodium Chloride (Normal Saline 0.9%) 1,000 mls @ 100 mls/hr IV .Q10H [facility] Last Admin: 07/06/18 16:51 Dose: 1,000 mls Labetalol HCl (Normodyne) 10 mg SLOW IVP Q4H PRN PRN Reason: Systolic BP > 180 Last Admin: 07/05/18 06:15 Dose: 10 mg Magnesium Hydroxide (Milk Of Magnesium) 30 ml PO DAILYPRN PRN PRN Reason: Constipation Melatonin (Melatonin) 3 mg PO HS PRN PRN Reason: Insomnia Last Admin: 07/04/18 20:54 Dose: 3 mg Metoprolol Tartrate (Lopressor) 75 mg PO BID [facility] Midodrine (Proamatine) 5 mg PO DAILY [facility] Nitroglycerin (Nitrostat) 0.4 mg PO Q5MIN PRN PRN Reason: Chest Pain Nitroglycerin (Nitro-Bid 2% Ointment) 0.5 inch TOP Q8HR [facility] Ondansetron HCl (Zofran Odt) 4 mg PO Q6H PRN PRN Reason: Nausea/Vomiting Ondansetron HCl (Zofran) 4 mg IVP Q6H PRN PRN Reason: Nausea/Vomiting Senna (Senokot) 2 tab PO HSPRN PRN PRN Reason: Constipation Tizanidine HCl (Zanaflex) 4 mg PO HSPRN PRN PRN Reason: Muscle Spasm Last Admin: 07/05/18 23:07 Dose: 4 mg
--- NOTE | 2018-07-06 21:00 | CON ---
DATE OF CONSULTATION: 07/06/2018 CONSULTING PHYSICIAN: Hospitalist Service. IMPRESSION: 1. Vagal-related hypotensive event resulting in a syncopal episode. 2. Pacemaker implantation. 3. Dementia. PLAN: As per Dr. Zhang' direction. HISTORY OF PRESENT ILLNESS: Ms. Stephenson is a 77-year-old black female, who lives at home with her jonny syed. She apparently was sitting on the toilet and had a syncopal episode. She had a similar event and was admitted to [facility] in the past. She had documented hypotensive episode and wa s called on a code. She cannot give me any history as to what she experienced other than she was on the toilet at that time. PAST MEDICAL HISTORY: Otherwise unknown. FAMILY HISTORY: Unknown. SOCIAL HISTORY: No tobacco or alcohol use known. ALLERGIES: NONSTEROIDALS, PENICILLIN. REVIEW OF SYSTEMS: Not obtainable. PHYSICAL EXAMINATION: GENERAL: She is alert, sitting up in a chair in no distress. VITAL SIGNS: Reviewed, which have shown 50 mm drops in systolic pressures, but fairly stable diastol ic pressures. She has a paced rhythm. HEENT: Unremarkable. EXTREMITIES: No cyanosis, clubbing, or edema. NEUROLOGIC: She has fluent and clear speech. She is totally disoriented to ongoing situation. Cran ial nerves II-XII are intact. Motor exam shows symmetric strength. No abnormal movements were seen. Gait was not tested. SUMMARY: This is an elderly lady with dementia, who had a syncopal event while sitting on the toilet . Given that she has a pacemaker, I suspect that it was a hypotensive episode. Agree with Dr. Zhang' plan for management.
[2018-07-06] MEDS: Nitroglycerin 2% Ointment 1 INCH/1 GM Packet TOP SCH (21:01)
[2018-07-06] MEDS: hydrALAZINE 20 MG/ML VIAL SLOW IVP PRN (22:38)
[2018-07-07] MEDS: Sodium Chloride 0.9% 1,000 ML IV SCH (03:30)
[2018-07-07] MEDS: Nitroglycerin 2% Ointment 1 INCH/1 GM Packet TOP SCH ×3 (05:19→21:56)
[2018-07-07 05:39] LABS: Anion Gap 11 mmol/L (10-20); BUN (Urea Nitrogen) 15 mg/dL (9.8-20.1); Calc. Creatinine Clearance 64 mL/min (70-130); Calcium 8.6 mg/dL (7.8-10.44); Carbon Dioxide 20 mmol/L (23-31); Chloride 113 mmol/L (98-107); Estimated GFR-MDRD 82; Glucose 91 mg/dL (83-110); Potassium 3.8 mmol/L (3.5-5.1); Sodium 140 mmol/L (136-145)
[2018-07-07] MEDS: Aspirin 325 MG TAB PO SCH (09:19)
[2018-07-07] MEDS: Amlodipine 5 MG TAB PO SCH (09:19)
[2018-07-07] MEDS: Atorvastatin Calcium 40 MG TAB PO SCH (09:19)
[2018-07-07] MEDS: Metoprolol Tartrate 50 MG TAB PO SCH ×2 (09:21→21:55)
[2018-07-07] MEDS: Midodrine HCl 5 MG TAB PO SCH (09:21)
[2018-07-07] MEDS: Famotidine 20 MG TAB PO SCH (09:21)
--- NOTE | 2018-07-07 11:46 | PDOC.CTH ---
<Jenn Parada - Last Filed: 07/07/18 11:44> Cardiology Progress Note - Subjective The pt seen and examined. No overnight events. No cardiac complaints. Per family, her BP with standing was 120. Howevever, they think her BP at that time was good because she had severe Rt shoulder pain. - Objective Vital Signs Temp Pulse Resp BP BP BP BP 07/07/18 09:19 60 07/07/18 08:55 98.9 F 60 20 112/57 L 120/73 110/56 L 07/07/18 04:00 98.7 F 60 18 120/56 L 07/07/18 00:00 98.6 F 69 14 122/57 L Pulse Ox 07/07/18 09:19 07/07/18 08:55 98 07/07/18 04:00 98 07/07/18 00:00 Weight 156 lb 3.2 oz 07/06/18 07/07/18 07/08/18 06:59 06:59 06:59 Intake Total 2502 3340 Output Total 50 400 Balance 2452 2940 - Physical Examination General/Neuro: other: (alert to self; confused to situation.) Lungs: CTA Heart: RRR Abdomen: soft Extremities: other: (mild bilat edema) - Telemetry Telemetry Rhythm: SR - Labs Result Diagrams: 07/03/18 01:58 07/07/18 05:02 Troponin/CKMB Troponin I 0.047 ng/mL (< 0.028) H 07/03/18 01:58 - Assessment/Plan 1. S/p Syncopal episode 2/2 orthostatic hypotension - Her orthstatic BP was stable this AM. On NS IV 100ml/h and TEDs. Neurology service consult. 2. HTN - stable with current medication 3. 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 Dementia - sitter at bedside 5. JEAN CLAUDE - improved. 6. Hyperlipidemia - On Statin MAR reviewed * Echo in 04/2017 showed EF60-65%, mod LVH, mod dilated LA. . Review of Systems - Review of Systems Constitutional: reports: no symptoms reported EENTM: reports: no symptoms reported Respiratory: reports: no symptoms reported Cardiac (ROS): reports: no symptoms reported ABD/GI: reports: no symptoms reported : reports: no symptoms reported Musculoskeletal: reports: no symptoms reported <Rojelio Zhang - Last Filed: 07/07/18 15:00> Cardiology Progress Note - Objective Vital Signs Temp Pulse Resp BP BP BP BP 07/07/18 12:00 98.5 F 62 20 123/66 07/07/18 09:19 60 07/07/18 08:55 98.9 F 60 20 112/57 L 120/73 110/56 L 07/07/18 04:00 98.7 F 60 18 120/56 L Pulse Ox 07/07/18 12:00 100 07/07/18 09:19 07/07/18 08:55 98 07/07/18 04:00 98 Weight 156 lb 3.2 oz 07/06/18 07/07/18 07/08/18 06:59 06:59 06:59 Intake Total 2502 3340 120 Output Total 50 400 Balance 2452 2940 120 - Labs Result Diagrams: 07/03/18 01:58 07/07/18 05:02 Troponin/CKMB Troponin I 0.047 ng/mL (< 0.028) H 07/03/18 01:58 - Assessment/Plan Pt. seen and eval. by me. I agree with the A/P by the EMAIL CAMPAIGN SPECIALIST. She was started on Midodrine this AM and betablockers were increased yesterday. The BP readings today seem somewhat better but I am suspicious that they may be inaccurate. She has no complaints. Chest clear. RRR, no significant edema. Still confused.
--- NOTE | 2018-07-07 11:51 | DIS ---
The patient was seen and examined by me this morning. The patient does not appear to be in any acute distress. The patient is feeling well. I spoke to the family. The family is aware that the patien miladis is doing well and they admit that the patient can be able to go home with them. Vital signs were reviewed. Patient's blood pressure sitting was 112/57, standing was 120/73 and supi ne was 110/56. Patient has negative orthostatics this morning. DISCHARGE DIAGNOSES: 1. Orthostatic hypotension. 2. Acute renal failure. 3. Electrolyte abnormality. 4. Dementia. CONSULTS: Neuro and Cardiology consult. HOSPITAL COURSE: We have a 77-year-old female with past medical history of AV block status post pace maker, dementia, hypertension, who was brought in to the emergency room after a syncopal episode. Th e patient was at home. Per the note, the patient's syncopal episode was witnessed. During the e of the hospital stay, the patient's temperature was found to be 98.8, respiratory rate was 16, puls e was 60, blood pressure 161/70, oxygen saturation 100% on room air. The patient underwent an EKG th at showed paced rhythm and orthostatics that was done showed that the patient has positive orthostati cs. Therefore, the patient's syncopal episode was attributed to orthostatic hypotension. The patien t was then started on fluids. Cardiology was consulted, came to see the patient. Per Cardiology, th e patient's orthostatic hypotension and patient problems are not due to cardiac issues, but rather au tonomic abnormalities. We got Neuro on board. Neuro is okay with management of using BRYN stockings and doing midodrine low dose and nitro p.r.n. At this point we have increased the patient's metoprol ol to 75 b.i.d. We will discharge the patient since the patient has medically been optimized. DISCHARGE MEDICATIONS: Refer to the electronic medical record for discharge medications. DISPOSITION: The patient was seen and examined by me. The patient is stable and ready to be dischar [facility].
--- NOTE | 2018-07-07 14:57 | EKG ---
Test Reason : Blood Pressure : / mmHG Vent. Rate : 060 BPM Atrial Rate : 060 BPM P-R Int : 288 ms QRS Dur : 108 ms QT Int : 434 ms P-R-T Axes : -04 045 032 degrees QTc Int : 434 ms Atrial-paced rhythm with prolonged AV conduction Abnormal ECG Confirmed by CLARA FITZGERALD MD ([id number]) on 07/07/2018 2:56:45 PM Referred By: GABINO Confirmed By:CLARA FITZGERALD MD
[2018-07-07] MEDS: Melatonin 3 MG TAB PO PRN (21:56)
[2018-07-08] MEDS: Nitroglycerin 2% Ointment 1 INCH/1 GM Packet TOP SCH ×3 (05:27→21:01)
[2018-07-08] MEDS: hydrALAZINE 20 MG/ML VIAL SLOW IVP PRN (05:27)
[2018-07-08] MEDS: Amlodipine 5 MG TAB PO SCH (09:53)
[2018-07-08] MEDS: Aspirin 325 MG TAB PO SCH (09:53)
[2018-07-08] MEDS: Atorvastatin Calcium 40 MG TAB PO SCH (09:53)
[2018-07-08] MEDS: Metoprolol Tartrate 50 MG TAB PO SCH ×2 (09:55→20:54)
[2018-07-08] MEDS: Famotidine 20 MG TAB PO SCH (09:56)
[2018-07-08] MEDS: Midodrine HCl 5 MG TAB PO SCH (09:56)
--- NOTE | 2018-07-08 17:21 | PDOC.PN ---
- Subjective Encounter Start Date: 07/08/18 Encounter Start Time: 17:20 patient seen and examined. Positive orthostatics this morning. - Objective Resuscitation Status: Resuscitation Status FULL:Full Resuscitation MAR Reviewed: Yes Vital Signs & Weight: Vital Signs (12 hours) Temp Pulse Resp BP BP BP BP 07/08/18 12:35 98.1 F 60 18 167/79 H 07/08/18 09:53 60 07/08/18 08:00 97.6 F 60 18 160/64 H 118/62 07/08/18 07:45 98.1 F 60 18 07/08/18 06:58 171/82 H 07/08/18 05:27 64 192/84 H BP Pulse Ox 07/08/18 12:35 98 07/08/18 09:53 07/08/18 08:00 146/70 H 97 07/08/18 07:45 97 07/08/18 06:58 07/08/18 05:27 Weight Weight 158 lb 1.6 oz I&O: 07/07/18 07/08/18 07/09/18 06:59 06:59 06:59 Intake Total 3340 1580 160 Output Total 400 Balance 2940 1580 160 Result Diagrams: 07/03/18 01:58 07/07/18 05:02 Dx/Plan (1) Orthostatic hypotension Code(s): I95.1 - ORTHOSTATIC HYPOTENSION Status: Acute Comment: + orthostatics today. Cardiac recommendations appreciated. Will continue current management. (2) Acute renal failure Status: Resolved (3) Electrolyte abnormality Code(s): E87.8 - OTH DISORDERS OF ELECTROLYTE AND FLUID BALANCE, NEC Status: Resolved (4) Hypertensive urgency Code(s): I16.0 - HYPERTENSIVE URGENCY Status: Acute (5) Dementia Code(s): F03.90 - UNSPECIFIED DEMENTIA WITHOUT BEHAVIORAL DISTURBANCE Status: Chronic Qualifiers: Dementia type: unspecified type Comment: continue current management. - Plan cont current plan of care * . Review of Systems - Review of Systems Constitutional: negative: fever, chills, sweats, weakness, malaise, other Eyes: negative: Pain, Vision Change, Conjunctivae Inflammation, Eyelid Inflammation, Redness, Other ENT: negative: Ear Pain, Ear Discharge, Nose Pain, Nose Discharge, Nose Congestion, Mouth Pain, Mouth Swelling, Throat Pain, Throat Swelling, Other Respiratory: negative: Cough, Dry, Shortness of Breath, Hemoptysis, SOB with Excertion, Pleuritic Pain, Sputum, Wheezing Cardiovascular: negative: chest pain, palpitations, orthopnea, paroxysmal nocturnal dyspnea, edema, light headedness, other Gastrointestinal: negative: Nausea, Vomiting, Abdominal Pain, Diarrhea, Constipation, Melena, Hematochezia, Other Genitourinary: negative: Dysuria, Frequency, Incontinence, Hematuria, Retention , Other Musculoskeletal: negative: Neck Pain, Shoulder Pain, Arm Pain, Back Pain, Hand Pain, Leg Pain, Foot Pain, Other Skin: negative: Rash, Lesions, Fredy, Bruising, Other Neurological: negative: Weakness, Numbness, Incoordination, Change in Speech, Confusion, Seizures, Other - Medications/Allergies Allergies/Adverse Reactions: Allergies Allergy/AdvReac Type Severity Reaction Status Date / Time ibuprofen Allergy Verified 07/03/18 01:41 NSAIDS (Non-Steroidal Allergy Verified 07/03/18 01:41 Anti-Inflamma Penicillins Allergy Verified 07/03/18 01:41 Medications: Current Medications Acetaminophen (Tylenol) 650 mg PO Q4H PRN PRN Reason: Headache/Fever or Pain Last Admin: 07/05/18 20:49 Dose: 650 mg Amlodipine Besylate (Norvasc) 2.5 mg PO DAILY [facility] Last Admin: 07/08/18 09:53 Dose: 2.5 mg Aspirin (Aspirin) 325 mg PO DAILY [facility] Last Admin: 07/08/18 09:53 Dose: 325 mg Atorvastatin Calcium (Lipitor) 40 mg PO DAILY [facility] Last Admin: 07/08/18 09:53 Dose: 40 mg Calcium Carbonate (Tums) 1,000 mg PO Q4H PRN PRN Reason: Heartburn or Indigestion Famotidine (Pepcid) 20 mg PO 0900 [facility] Last Admin: 07/08/18 09:56 Dose: 20 mg Hydralazine HCl (Apresoline) 10 mg SLOW IVP Q4H PRN PRN Reason: FOR SBP > 180 Last Admin: 07/08/18 05:27 Dose: 10 mg Labetalol HCl (Normodyne) 10 mg SLOW IVP Q4H PRN PRN Reason: Systolic BP > 180 Last Admin: 07/05/18 06:15 Dose: 10 mg Magnesium Hydroxide (Milk Of Magnesium) 30 ml PO DAILYPRN PRN PRN Reason: Constipation Melatonin (Melatonin) 3 mg PO HS PRN PRN Reason: Insomnia Last Admin: 07/07/18 21:56 Dose: 3 mg Metoprolol Tartrate (Lopressor) 75 mg PO BID [facility] Last Admin: 07/08/18 09:55 Dose: 75 mg Midodrine (Proamatine) 5 mg PO DAILY [facility] Last Admin: 07/08/18 09:56 Dose: 5 mg Nitroglycerin (Nitrostat) 0.4 mg PO Q5MIN PRN PRN Reason: Chest Pain Nitroglycerin (Nitro-Bid 2% Ointment) 0.5 inch TOP Q8HR [facility] Last Admin: 07/08/18 13:50 Dose: 0.5 inch Ondansetron HCl (Zofran Odt) 4 mg PO Q6H PRN PRN Reason: Nausea/Vomiting Ondansetron HCl (Zofran) 4 mg IVP Q6H PRN PRN Reason: Nausea/Vomiting Senna (Senokot) 2 tab PO HSPRN PRN PRN Reason: Constipation Sodium Chloride (Flush - Normal Saline) 10 ml IVF Q12HR [facility] Last Admin: 07/08/18 09:56 Dose: 10 ml Sodium Chloride (Flush - Normal Saline) 10 ml IVF PRN PRN PRN Reason: Saline Flush Tizanidine HCl (Zanaflex) 4 mg PO HSPRN PRN PRN Reason: Muscle Spasm Last Admin: 07/05/18 23:07 Dose: 4 mg
[2018-07-09] MEDS: Nitroglycerin 2% Ointment 1 INCH/1 GM Packet TOP SCH ×3 (05:37→20:24)
[2018-07-09] MEDS: Amlodipine 5 MG TAB PO SCH (08:50)
[2018-07-09] MEDS: Aspirin 325 MG TAB PO SCH (08:50)
[2018-07-09] MEDS: Midodrine HCl 5 MG TAB PO SCH (08:50)
[2018-07-09] MEDS: Famotidine 20 MG TAB PO SCH (08:51)
[2018-07-09] MEDS: Atorvastatin Calcium 40 MG TAB PO SCH (08:51)
[2018-07-09] MEDS: Metoprolol Tartrate 50 MG TAB PO SCH ×2 (08:51→20:24)
[2018-07-09] MEDS: Melatonin 3 MG TAB PO PRN (20:24)
--- NOTE | 2018-07-09 21:58 | PDOC.PN ---
- Subjective Encounter Start Date: 07/09/18 Encounter Start Time: 10:00 Patient seen and examined for Syncope. No new complaints. No overnight events - Objective Resuscitation Status: Resuscitation Status FULL:Full Resuscitation MAR Reviewed: Yes Vital Signs & Weight: Vital Signs (12 hours) Temp Pulse Resp BP Pulse Ox 07/09/18 19:30 98.1 F 61 18 145/58 H 95 07/09/18 17:06 98.2 F 60 16 139/73 100 07/09/18 12:53 97.9 F 60 16 137/65 100 Weight Weight 156 lb 8 oz I&O: 07/08/18 07/09/18 07/10/18 06:59 06:59 06:59 Intake Total 1580 880 720 Output Total 100 Balance 1580 780 720 Result Diagrams: 07/03/18 01:58 07/07/18 05:02 EKG Reviewed by me: Yes (Tele SR) Phys Exam - Physical Examination Constitutional: NAD Respiratory: no wheezing, no rhonchi Cardiovascular: RRR, no rub Gastrointestinal: soft, non-tender, positive bowel sounds Musculoskeletal: no edema Neurological: moves all 4 limbs Dx/Plan - Plan DVT proph w/SCDs IMPRESSION: 1. Syncopal episode due to Orthostatic hypotension. 2. Acute kidney injury on chronic kidney disease stage 2. 3. Hypokalemia. 4. Hypomagnesemia. 5. Elevated troponins, probably secondary to demand ischemia. 6. Hypertension 7. Dementia. PLAN: Cont Midodrine Cont Metoprolol/Amlodipine Orthostatic vitals in AM AM labs DC in AM if ok with Cardiology Review of Systems - Review of Systems Respiratory: negative: Cough, Dry, Shortness of Breath, Hemoptysis, SOB with Excertion, Pleuritic Pain, Sputum, Wheezing Cardiovascular: negative: chest pain, palpitations, orthopnea, paroxysmal nocturnal dyspnea, edema, light headedness, other - Medications/Allergies Allergies/Adverse Reactions: Allergies Allergy/AdvReac Type Severity Reaction Status Date / Time ibuprofen Allergy Verified 07/03/18 01:41 NSAIDS (Non-Steroidal Allergy Verified 07/03/18 01:41 Anti-Inflamma Penicillins Allergy Verified 07/03/18 01:41 Medications: Current Medications Acetaminophen (Tylenol) 650 mg PO Q4H PRN PRN Reason: Headache/Fever or Pain Last Admin: 07/05/18 20:49 Dose: 650 mg Amlodipine Besylate (Norvasc) 2.5 mg PO DAILY [facility] Last Admin: 07/09/18 08:50 Dose: 2.5 mg Aspirin (Aspirin) 325 mg PO DAILY [facility] Last Admin: 07/09/18 08:50 Dose: 325 mg Atorvastatin Calcium (Lipitor) 40 mg PO DAILY [facility] Last Admin: 07/09/18 08:51 Dose: 40 mg Calcium Carbonate (Tums) 1,000 mg PO Q4H PRN PRN Reason: Heartburn or Indigestion Famotidine (Pepcid) 20 mg PO 0900 [facility] Last Admin: 07/09/18 08:51 Dose: 20 mg Hydralazine HCl (Apresoline) 10 mg SLOW IVP Q4H PRN PRN Reason: FOR SBP > 180 Last Admin: 07/08/18 05:27 Dose: 10 mg Labetalol HCl (Normodyne) 10 mg SLOW IVP Q4H PRN PRN Reason: Systolic BP > 180 Last Admin: 07/05/18 06:15 Dose: 10 mg Magnesium Hydroxide (Milk Of Magnesium) 30 ml PO DAILYPRN PRN PRN Reason: Constipation Melatonin (Melatonin) 3 mg PO HS PRN PRN Reason: Insomnia Last Admin: 07/09/18 20:24 Dose: 3 mg Metoprolol Tartrate (Lopressor) 75 mg PO BID [facility] Last Admin: 07/09/18 20:24 Dose: 75 mg Midodrine (Proamatine) 5 mg PO DAILY [facility] Last Admin: 07/09/18 08:50 Dose: 5 mg Nitroglycerin (Nitrostat) 0.4 mg PO Q5MIN PRN PRN Reason: Chest Pain Nitroglycerin (Nitro-Bid 2% Ointment) 0.5 inch TOP Q8HR [facility] Last Admin: 07/09/18 20:24 Dose: 0.5 inch Ondansetron HCl (Zofran Odt) 4 mg PO Q6H PRN PRN Reason: Nausea/Vomiting Ondansetron HCl (Zofran) 4 mg IVP Q6H PRN PRN Reason: Nausea/Vomiting Senna (Senokot) 2 tab PO HSPRN PRN PRN Reason: Constipation Sodium Chloride (Flush - Normal Saline) 10 ml IVF Q12HR [facility] Last Admin: 07/09/18 21:23 Dose: Not Given Sodium Chloride (Flush - Normal Saline) 10 ml IVF PRN PRN PRN Reason: Saline Flush Tizanidine HCl (Zanaflex) 4 mg PO HSPRN PRN PRN Reason: Muscle Spasm Last Admin: 07/05/18 23:07 Dose: 4 mg
[2018-07-10 05:22] LABS: Hemoglobin 10.3 g/dL (12.0-16.0); Platelet Count 237 thou/uL (130-400)
[2018-07-10 05:35] LABS: Anion Gap 10 mmol/L (10-20); BUN (Urea Nitrogen) 18 mg/dL (9.8-20.1); Calc. Creatinine Clearance 58 mL/min (70-130); Calcium 9.3 mg/dL (7.8-10.44); Carbon Dioxide 23 mmol/L (23-31); Chloride 108 mmol/L (98-107); Estimated GFR-MDRD 73; Glucose 85 mg/dL (83-110); Magnesium 1.5 mg/dL (1.6-2.6); Potassium 4.4 mmol/L (3.5-5.1); Sodium 137 mmol/L (136-145)
[2018-07-10] MEDS: Famotidine 20 MG TAB PO SCH (08:24)
[2018-07-10] MEDS: Metoprolol Tartrate 50 MG TAB PO SCH (08:24)
[2018-07-10] MEDS: Atorvastatin Calcium 40 MG TAB PO SCH (08:25)
[2018-07-10] MEDS: Amlodipine 5 MG TAB PO SCH (08:25)
[2018-07-10] MEDS: Midodrine HCl 5 MG TAB PO SCH (08:25)
[2018-07-10] MEDS: Aspirin 325 MG TAB PO SCH (08:25)
[2018-07-10] MEDS ORDERED: Magnesium Sulfate 2 GM in Sodium Chloride 0.9% 100 ML IVPB SCH (09:15)
--- NOTE | 2018-07-10 11:12 | PDOC.CTH ---
Cardiology Progress Note - Subjective The pt seen and examined. No overnight events. NO cardiac complaints. She is alerted but confused for situation and place. She complains of constipation. - Objective Vital Signs Temp Pulse Resp BP BP BP Pulse Ox 07/10/18 08:25 70 07/10/18 08:08 97.4 F L 60 20 134/74 169/76 H 100 07/10/18 04:00 98.5 F 60 20 145/69 H 100 Weight 155 lb 12.8 oz 07/09/18 07/10/18 07/11/18 06:59 06:59 06:59 Intake Total 880 820 Output Total 100 Balance 780 820 - Physical Examination Neck: carotid US brisk Lungs: CTA Heart: RRR Extremities: other: (No edema) - Telemetry Telemetry Rhythm: A paced 60s - Labs Result Diagrams: 07/10/18 05:06 07/10/18 05:06 Troponin/CKMB Troponin I 0.047 ng/mL (< 0.028) H 07/03/18 01:58 - Assessment/Plan 1. S/p Syncopal episode 2/2 orthostatic hypotension - Her orthstatic BP was stable this AM with Metoprolol 75 mg BID and Midodrene 5mg qd. Seen by Neurology service. 2. HTN - stable with current medication 3. 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 Dementia - sitter at bedside 5. JEAN CLAUDE - improved. 6. Hyperlipidemia - On Statin MAR reviewed * Echo in 04/2017 showed EF60-65%, mod LVH, mod dilated LA. * From Cardiac standpoint,, the pt is stable to d/c home. The pt will f/u with her External Relations Manager within 1-2wks. Review of Systems - Review of Systems Constitutional: reports: no symptoms reported EENTM: reports: no symptoms reported Respiratory: reports: no symptoms reported Cardiac (ROS): reports: no symptoms reported ABD/GI: reports: no symptoms reported : reports: no symptoms reported
[2018-07-10 11:25] VITALS: BP 170/84; TEMP 97.7
[2018-07-10] MEDS ORDERED: Magnesium Chloride 64 MG TAB PO SCH ×2 (11:30→21:00)
[2018-07-10] MEDS: Acetaminophen 325 MG TAB PO PRN (13:19)
--- NOTE | 2018-07-10 21:11 | DIS ---
DATE OF DISCHARGE: 07/10/2018 DISCHARGE DISPOSITION: Home. FOLLOWUP: 1. Follow up with primary care physician at [facility]. 2. Follow up with Cardiology, Dr. Zhang, in 2-3 weeks. 3. Follow up with Dr. Cartwright in 2-3 weeks. DISCHARGE MEDICATIONS: 1. Nitro paste as needed for systolic blood pressure more than 170. 2. Lopressor 75 mg twice a day. 3. Midodrine 5 mg daily. 4. Slow magnesium twice a day. 5. All other home medications were left unchanged. Basic metabolic profile with magnesium next week is recommended. Primary care physician advised to carson dorantes. BRIEF HOSPITAL COURSE: The patient is a 77-year-old female with dementia, hypertension, and pacemake r, presented to the emergency room after a syncopal episode while she was walking out of the bathroom . Please refer to the history and physical for further details. The patient was admitted to the hospital with a diagnosis of syncopal episode of unclear etiology. S he was found to have orthostatic hypotension. The patient was seen by Cardiology, Dr. Zhang as well a s Neurology, Dr. Cartwright. Her medications have been optimized. Midodrine has been added. Patient h as been cleared by Cardiology for discharge. Fall precaution was emphasized. Carotid Doppler was li mited due to dense echogenic plaque in the left ICA. A CT angiogram of the neck as an outpatient is recommended. Primary care physician advised to follow. This was not done due to mild acute kidney i njury on admission. FINAL DIAGNOSES: 1. Syncope secondary to orthostatic hypotension. 2. Acute kidney injury on chronic kidney disease stage 2. 3. Hypokalemia. 4. Hypomagnesemia. 5. Elevated troponins secondary to demand ischemia. 6. Hypertension. 7. Dementia. 8. Physical deconditioning. Plan of care was discussed with the patient and the family in detail. They stated understanding.
== END 2018-07-10 15:28 | disposition home or self-care (01) | DRG 312 ==
LOC: ERS 20:06 → OBSVTOIN 23:50 → 2SW 23:50 → 2NO 07-04 17:31
PROVIDERS: ADMIT Hospitalist; ATTEND Hospitalist
DX: I95.1 Orthostatic hypotension (principal); N17.9 Acute kidney failure, unspecified; I24.8 Other forms of acute ischemic heart disease; F03.90 Unspecified dementia, unspecified severity, without behavioral disturbance, psychotic disturbance, mood disturbance, and anxiety; N18.2 Chronic kidney disease, stage 2 (mild); I87.8 Other specified disorders of veins; D64.9 Anemia, unspecified; E87.6 Hypokalemia; E83.42 Hypomagnesemia; I13.10 Hypertensive heart and chronic kidney disease without heart failure, with stage 1 through stage 4 chronic kidney disease, or unspecified chronic kidney disease; I16.0 Hypertensive urgency; I44.0 Atrioventricular block, first degree; E86.0 Dehydration; I49.5 Sick sinus syndrome; E78.5 Hyperlipidemia, unspecified; Z88.6 Allergy status to analgesic agent; Z88.0 Allergy status to penicillin; Z79.82 Long term (current) use of aspirin; Z95.0 Presence of cardiac pacemaker
CPT/HCPCS: 36415; 80048; 83735; 83880; 84100; 84484; 85014; 85018; 85025; 85049; 93005; 93010; 93306; 93880; 94760; A4216; J0360; J3475; J7050